=== PATIENT | female | born 1950 | race Caucasian/White ===

== ENCOUNTER 2016-04-03 16:28 | Emergency (ER) | payer OTHER ==
[2016-04-03 16:36] VITALS: PULSE 64; TEMP 97.4; BMI 35.7
[2016-04-03 18:00] LABS: BASOPHIL 0.6 % (0-2.0); MCHC 34.4 g/dl (32.0-36.0); MEAN CELL VOLUME 81.6 fl (80-96); MEAN PLT VOLUME 7.7 fl (7.5-11.1); NEUTROPHILS 71.8 % (42.8-82.8); PLATELET COUNT 268 K/MM3 (134-434); RDW 14.7 % (11.6-15.6); URINE APPEARANCE CLOUDY; URINE BILIRUBIN NEGATIVE (NEGATIVE); URINE BLOOD NEGATIVE (NEGATIVE); URINE COLOR AMBER; URINE GLUCOSE (UA) NEGATIVE (NEGATIVE); URINE KETONE NEGATIVE (NEGATIVE); URINE NITRITE NEGATIVE (NEGATIVE); URINE UROBILINOGEN 4.0 E.U/dl E.U./dl (0.2-1.0); WHITE BLOOD COUNT 8.4 K/mm3 (4.0-10.0)
[2016-04-03 18:01] LABS: URINE LEUK ESTERASE 3+ (NEGATIVE); URINE PROTEIN 1+ (NEGATIVE)
--- NOTE | 2016-04-03 18:27 | PDOC ---
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 Christine today. She reports her abdominal pain is diffuse, however, more prominent to her midsection. She also reports tenderness to the upper quadrants of her abdomen, bilaterally. The patient reports feeling feverish, lightheaded, and nauseous for the past couple of days. She reports mild back pain across the middle of her back. She denies experiencing these symptoms in the past. She reports taking tramadol this morning with minimal relief of pain. She reports a loss of appetite over the past few days. She reports her last bowel movement was yesterday morning after taking laxatives the night before. She denies chest pain, shortness of breath, headache and dizziness. She denies vomit, diarrhea and constipation. She denies dysuria, frequency, urgency and hematuria. Allergies: NKDA Past surgical history: appendectomy, Left sided Lithotripsy Social history: former tobacco use PCP - Dr. Christine ([phone]) Urologist: Dr. Santos ([phone]) <Amy Tabor - Last Filed: 04/03/16 21:33> <Alma Perez - Last Filed: 04/08/16 17:12> - General Chief Complaint: Pain Stated Complaint: had shingles/PCP SENT Past History <Amy Tabor - Last Filed: 04/03/16 21:33> - Past Medical History Anemia: Yes Asthma: No Cancer: No Cardiac Disorders: No CVA: No COPD: No CHF: No Dementia: No Diabetes: No GI Disorders: No Disorders: No HTN: Yes Hypercholesterolemia: Yes Kidney Stones: Yes Liver Disease: No Seizures: No Thyroid Disease: Yes - Surgical History Abdominal Surgery: No Appendectomy: Yes Cardiac Surgery: No Cholecystectomy: No Lung Surgery: No Neurologic Surgery: No Orthopedic Surgery: Yes (LEFT ARTHROSCOPY X2,RIGHT ARTHROSCOPY X1,RIGHT ANKLE SX ) - Psycho/Social/Smoking Cessation Hx Anxiety: No Suicidal Ideation: No Smoking History: Never smoked Have you smoked in the past 12 months: No If you are a former smoker, when did you quit?: 2001 Information on smoking cessation initiated: No Hx Alcohol Use: No Drug/Substance Use Hx: No Substance Use Type: None Hx Substance Use Treatment: No <Alma Perez - Last Filed: 04/08/16 17:12> - Past Medical History Allergies/Adverse Reactions: Allergies Allergy/AdvReac Type Severity Reaction Status Date / Time No Known Drug Allergies Allergy Verified 04/03/16 16:32 Home Medications: Ambulatory Orders Aspirin Coated [Ecotrin -] 81 mg PO DAILY 05/30/15 Ferrous Sulfate [Feosol] 325 mg PO DAILY 05/30/15 Levothyroxine [Synthroid -] 100 mcg PO DAILY 05/30/15 Metoprolol Succinate [Toprol XL -] 75 mg PO DAILY 05/30/15 Simvastatin 40 mg PO HS 05/30/15 Sulfamethoxazole/Trimethoprim [Bactrim Ds -] 1 tab PO BID #20 tablet 04/04/16 Review of Systems - Review of Systems Able to Perform ROS?: Yes Comments:: 04/03/16 18:30 CONSTITUTIONAL: (+) loss of appetite, subjective fever and chills, Absent: diaphoresis, generalized weakness, malaise, HEENT: Absent: rhinorrhea, nasal congestion, throat pain, throat swelling, difficulty swallowing, mouth swelling, ear pain, eye pain, visual Changes CARDIOVASCULAR: (+) lightheadedness, Absent: chest pain, syncope, palpitations, irregular heart rate, peripheral edema RESPIRATORY: Absent: cough, shortness of breath, dyspnea with exertion, orthopnea, wheezing, stridor, hemoptysis GASTROINTESTINAL: (+) abdominal pain, abdominal distension, nausea, Absent: vomiting, diarrhea, constipation, melena, hematochezia GENITOURINARY: Absent: dysuria, frequency, urgency, hesitancy, hematuria, flank pain, genital pain MUSCULOSKELETAL: Absent: myalgia, arthralgia, joint swelling SKIN: Absent: rash, itching, pallor HEMATOLOGIC/IMMUNOLOGIC: Absent: easy bleeding, easy bruising, lymphadenopathy, frequent infections ENDOCRINE: Absent: unexplained weight gain, unexplained weight loss, heat intolerance, cold intolerance NEUROLOGIC: Absent: headache, focal weakness or paresthesias, dizziness, unsteady gait, seizure, mental status changes, bladder or bowel incontinence PSYCHIATRIC: Absent: anxiety, depression, suicidal or homicidal ideation, hallucinations. <Amy Tabor - Last Filed: 04/03/16 21:33> *Physical Exam - Vital Signs Last Vital Signs Temp Pulse Resp BP Pulse Ox 97.4 F L 64 18 144/77 100 04/03/16 16:33 04/03/16 16:33 04/03/16 16:33 04/03/16 16:33 04/03/16 16:33 - Physical Exam Comments: 04/03/16 18:31 GENERAL: Well developed, well nourished. Awake and alert. No acute distress. HEENT: (+) Pterygium. Normocephalic, atraumatic. PERRLA, EOMI. No conjunctival pallor. Sclera are non-icteric. Moist mucous membranes. Oropharynx is clear. NECK: Supple. Full ROM. No JVD. Carotid pulses 2+ and symmetric, without bruits. No thyromegaly. No lymphadenopathy. CARDIOVASCULAR: Regular rate and rhythm. No murmurs, rubs, or gallops. Distal pulses are 2+ and symmetric. PULMONARY: No evidence of respiratory distress. Lungs clear to auscultation bilaterally. No wheezing, rales or rhonchi. ABDOMINAL: (+) Diffuse tenderness. mildly distended. Soft. No rebound or guarding. No organomegaly. Normoactive bowel sounds. MUSCULOSKELETAL Normal range of motion at all joints. No bony deformities or tenderness. No CVA tenderness. EXTREMITIES: No cyanosis. No clubbing. No edema. No calf tenderness. SKIN: (+) Lesions on left breast are dry. Warm and dry. Normal capillary refill. No jaundice. NEUROLOGICAL: Alert, awake, appropriate. Cranial nerves 2-12 intact. Normoreflexic in the upper and lower extremities. Normal speech. Toes are down-going bilaterally. Gait is normal without ataxia. PSYCHIATRIC: Cooperative. Good eye contact. Appropriate mood and affect. <Amy Tabor - Last Filed: 04/03/16 21:33> - Vital Signs Last Vital Signs Temp Pulse Resp BP Pulse Ox 97.4 F L 64 18 144/77 100 04/03/16 16:33 04/03/16 16:33 04/03/16 16:33 04/03/16 16:33 04/03/16 16:33 <Alma Perez - Last Filed: 04/08/16 17:12> Heart Score/ECG Review - [place] Comment: 04/03/16 21:33 EKG was read by Dr. Perez at 19:05 Impression: Sinus Bradycardia Vent.Rate: 59 bpm VT Interval: 176 ms QTc: 451 ms <Amy Tabor - Last Filed: 04/03/16 21:33> ED Treatment Course - LABORATORY CBC & Chemistry Diagram: 04/03/16 17:40 04/03/16 17:40 - ADDITIONAL ORDERS Additional order review: Laboratory Results 04/03/16 17:40 Urine Color Bharti Urine Appearance Cloudy Urine pH 5.0 Ur Specific Vermilion 1.027 Urine Protein 1+ H Urine Glucose (UA) Negative Urine Ketones Negative Urine Blood Negative Urine Nitrite Negative Urine Bilirubin Negative Urine Urobilinogen 4.0 e.u/dl H Ur Leukocyte Esterase 3+ H - RADIOLOGY Radiograph Interpretation: 04/03/16 19:32 Abdominal Xray was read by Dr. Velez at 18:50 Impression: Unremarkable exam. 04/03/16 21:[address] was read by Dr. Velez at 20:49 Impression: mild hepatomegaly with fatty infiltration and a tiny calcified density in the right hepatic lobe likely representing a granuloma. Gallstones, probably 3 in number with the largest measuring 2.5 cm and with diffuse thickening of the gallbladder wall. No pericholecystic inflammatory changes or free fluid are identified. Correlate clinically for further evaluation. 6mm nonobstructing left renal stone without evidence of hydrouretronephrosis or uteral stone, bilaterally. <Amy Tabor - Last Filed: 04/03/16 21:33> - LABORATORY CBC & Chemistry Diagram: 04/03/16 17:40 04/03/16 17:40 - ADDITIONAL ORDERS Additional order review: Laboratory Results 04/03/16 17:40 Urine Color Bharti Urine Appearance Cloudy Urine pH 5.0 Ur Specific [place] 1.027 Urine Protein 1+ H Urine Glucose (UA) Negative Urine Ketones Negative Urine Blood Negative Urine Nitrite Negative Urine Bilirubin Negative Urine Urobilinogen 4.0 e.u/dl H Ur Leukocyte Esterase 3+ H <Alma Perez - Last Filed: 04/08/16 17:12> Medical Decision Making - Medical Decision Making 04/03/16 21:11 Dr. Christine was paged via phone answering service requesting a callback for doctor to doctor consult. 04/03/16 21:30 Dr. Christine was paged a second time via phone answering service requesting a callback for doctor to doctor consult. <Amy Tabor - Last Filed: 04/03/16 21:33> - Medical Decision Making 04/04/16 00:58 This 65-year-old female was referred to the emergency department by her primary care physician, Dr. christine for abdominal pain She has complaint of some nausea and bloating feeling. Her discomfort tends to be upper abdominal pain. She has not had a fever, she's not had chills, she's not had diarrhea. She's not had vomiting. She has not had a cough Labs revealed mild elevated kidney function tests. The creatinine 1.3 and BUN of 21 CAT scan showed thickened gallbladder wall and 3. Gallbladder stones the largest measuring 2.5 cm IMP cholelithiasis /cholecystitis. However, the patient does not have a fever, she does not have a leukocytosis, she is not vomiting. She is able to eat food and she wants to leave the emergency department go home Patient will follow-up with Dr. Christine this week and see a surgeon to set up for a cholecystectomy 04/08/16 17:10 update I spoke w Dr Christine on SaturdayApr 06 and this pt had already had a cholecystectomy done this week after she was seen in the ER and was doing well <Alma Perez - Last Filed: 04/08/16 17:12> *DC/Admit/Observation/Transfer - Attestations Scribe Attestion: 04/03/16 18:32 Documentation prepared by Amy Tabor, acting as medical pathology teacher for Alma Perez MD <Amy Tabor - Last Filed: 04/03/16 21:33> <Alma Perez - Last Filed: 04/08/16 17:12> Diagnosis at time of Disposition: Cholelithiasis Qualifiers: Cholelithiasis location: gallbladder Cholecystitis presence: without cholecystitis Biliary obstruction: without biliary obstruction Qualified Code(s) : K80.20 - Calculus of gallbladder without cholecystitis without obstruction - Discharge Dispostion Disposition: HOME Condition at time of disposition: Stable - Prescriptions Prescriptions: Sulfamethoxazole/Trimethoprim [Bactrim Ds -] 1 tab PO BID #20 tablet - Referrals Referrals: Chris Christine MD [Primary Care Provider] - - Patient Instructions Printed Discharge Instructions: DI for Gallstones Additional Instructions: Please followup with your primary physician this week. If you have any worsening symptoms or for new concerning symptoms return to the emergency department.
[2016-04-03 18:30] LABS: ALBUMIN 3.7 g/dl (3.4-5.0); BILIRUBIN,TOTAL 0.8 mg/dL (0.2-1.0); CALCIUM 9.2 mg/dL (8.5-10.1); CREATININE 1.3 mg/dL (0.55-1.02)
[2016-04-03 19:28] LABS: GRANULAR CASTS 6 /lpf; URINE BACTERIA RARE /hpf (NONE SEEN); URINE HYALINE CAST 19 /lpf; URINE MUCUS FEW; URINE RBC 8 /hpf (0-3); URINE WBC 213 /hpf (3-5)
[2016-04-03 21:20] VITALS: BP 159/84
--- NOTE | 2016-04-04 13:26 | EKG ---
Test Reason : Blood Pressure : / mmHG Vent. Rate : 059 BPM Atrial Rate : 059 BPM P-R Int : 176 ms QRS Dur : 100 ms QT Int : 456 ms P-R-T Axes : 061 022 045 degrees QTc Int : 451 ms SINUS BRADYCARDIA OTHERWISE NORMAL ECG NO PREVIOUS ECGS AVAILABLE Confirmed by ALEXANDRA BROWN MD ([id number]) on 04/04/2016 1:26:11 PM Referred By: Confirmed By:ALEXANDRA BROWN MD
== END 2016-04-03 21:50 | disposition home or self-care (01) ==
LOC: JER 16:28
DX: K80.20 Calculus of gallbladder without cholecystitis without obstruction (principal); Z87.442 Personal history of urinary calculi; I10 Essential (primary) hypertension; Z87.891 Personal history of nicotine dependence
CPT/HCPCS: 36415; 74000-TC; 74176-TC; 80053; 81003; 81015; 82150; 83690; 85025; 87804; 93005; 93010; 99284-25

== ENCOUNTER 2021-01-23 04:24 | Day surgery (SDC) | payer OTHER ==
[2021-01-19 12:09] VITALS: BMI 34.9
[2021-01-23] MEDS ORDERED: ROPIVACAINE HCL 0.5% 30ML VIAL ONE (07:03)
[2021-01-23] MEDS ORDERED: MIDAZOLAM HCL 2 MG/2 ML SINGLE DOSE VIAL ONE ×2 (07:05)
[2021-01-23] MEDS ORDERED: ONDANSETRON 4 MG/2 ML VIAL ONE (07:35)
[2021-01-23] MEDS ORDERED: PROPOFOL 20 ML ONE ×3 (07:35)
[2021-01-23] MEDS ORDERED: KETOROLAC TROMETHAMINE 30 MG/1 ML VIAL ONE (07:35)
[2021-01-23] MEDS ORDERED: DEXAMETHASONE SOD PHOSPHATE 4 MG/1 ML VIAL ONE (07:35)
[2021-01-23] MEDS ORDERED: SCOPOLAMINE HYDROBROMIDE 1 PATCH PATCH.TD72 ONE (07:54)
[2021-01-23] MEDS ORDERED: SCOPOLAMINE HYDROBROMIDE 1 PATCH PATCH.TD72 TD ONE (07:58)
[2021-01-23] MEDS ORDERED: ceFAZolin 2 GRAM PREMIX BAG IVPB ONE (08:15)
[2021-01-23 08:38] LABS: EPI CELLS 5 /uL (0-25.1); HYALINE CASTS 0 /uL (0-3.1); URINE APPEARANCE CLEAR; URINE BACTERIA 0 /uL (0-1359); URINE BILIRUBIN NEGATIVE (NEGATIVE); URINE COLOR YELLOW; URINE GLUCOSE (UA) NEGATIVE (NEGATIVE); URINE KETONE NEGATIVE (NEGATIVE); URINE LEUK ESTERASE 1+ (NEGATIVE); URINE NITRITE NEGATIVE (NEGATIVE); URINE PROTEIN NEGATIVE (NEGATIVE); URINE RBC 12 /uL (0-23.9); URINE UROBILINOGEN 0.2 mg/dL (0.2-1.0); URINE WBC 46 /uL (0-25.8)
[2021-01-23] MEDS ORDERED: ONDANSETRON 4 MG/2 ML VIAL IVPUSH PRN (09:54)
[2021-01-23] MEDS ORDERED: oxyCODONE HCL 5 MG TABLET PO PRN ×2 (09:54)
[2021-01-23] MEDS ORDERED: LACTATED RINGERS SOLUTION 1,000 ML IV SCH (10:00)
[2021-01-23] MEDS ORDERED: hydrALAZINE HCL 20 MG/ML VIAL IVPUSH ONE ×3 (10:06→10:38)
[2021-01-23 13:11] VITALS: BP 142/73; PULSE 71; TEMP 96.9
== END 2021-01-23 12:50 | disposition home or self-care (01) ==
LOC: JASU-SURG 04:24
PROVIDERS: ATTEND Orthopaedic Surgery
PROC: 0RQJ4ZZ Repair Right Shoulder Joint, Percutaneous Endoscopic Approach (ICD-10-PCS; 2021-01-23)
PROC: 0PB94ZZ Excision of Right Clavicle, Percutaneous Endoscopic Approach (ICD-10-PCS; principal; 2021-01-23 07:30)
DX: M75.41 Impingement syndrome of right shoulder (principal); M19.011 Primary osteoarthritis, right shoulder; S43.431A Superior glenoid labrum lesion of right shoulder, initial encounter; X58.XXXA Exposure to other specified factors, initial encounter; Y93.9 Activity, unspecified; Y92.9 Unspecified place or not applicable; Y99.9 Unspecified external cause status; E11.9 Type 2 diabetes mellitus without complications; I10 Essential (primary) hypertension; Z79.84 Long term (current) use of oral hypoglycemic drugs
CPT/HCPCS: 81003; 82962; 94760

== ENCOUNTER 2021-09-12 15:44 | Observation (INO) | payer OTHER ==
[2021-09-12 16:23] VITALS: BMI 34.9
[2021-09-12] MEDS ORDERED: ACETAMINOPHEN 325 MG TABLET (FP) PO ONE (17:58)
[2021-09-12] MEDS ORDERED: METOCLOPRAMIDE HCL INJECTION 10 MG/2 ML VIAL IVPUSH ONE (17:58)
[2021-09-12 18:25] LABS: BASO % 0.1 % (0-2.0); EOS % 0.1 % (0-4.5); HEMATOCRIT 34.8 % (32.4-45.2); HEMOGLOBIN 11.6 GM/dL (10.7-15.3); LYMPH % 23.3 % (8-40); MCH 24.9 pg (25.7-33.7); MCHC 33.2 g/dl (32.0-36.0); MEAN PLT VOLUME 7.7 fl (7.5-11.1); MONO % 7.8 % (3.8-10.2); NEUT % 68.7 % (42.8-82.8); PLATELET COUNT 210 10^3/uL (134-434); RBC 4.64 M/mm3 (3.60-5.2); RDW 16.7 % (11.6-15.6); WHITE BLOOD COUNT 6.1 K/mm3 (4.0-10.0)
[2021-09-12 18:32] LABS: INR 1.03 (0.83-1.09); PROTHROMBIN TIME (PATIENT) 11.8 SEC (9.7-13.0)
[2021-09-12 18:35] LABS: ACTIVATED PTT 30.5 SECONDS (25.2-36.5)
[2021-09-12] MEDS ORDERED: ACETAMINOPHEN 325 MG TABLET (FP) ONE (18:45)
[2021-09-12] MEDS ORDERED: METOCLOPRAMIDE HCL INJECTION 10 MG/2 ML VIAL ONE (18:46)
[2021-09-12 18:50] LABS: CALCIUM 9.4 mg/dL (8.5-10.1)
[2021-09-12 18:51] LABS: ALBUMIN 3.8 g/dl (3.4-5.0); BLOOD UREA NITROGEN 14.1 mg/dL (7-18); MAGNESIUM 2.3 mg/dL (1.8-2.4)
[2021-09-12 18:54] LABS: BILIRUBIN,TOTAL 0.7 mg/dL (0.2-1); CREATININE 0.9 mg/dL (0.55-1.3); PHOSPHOROUS 2.9 mg/dL (2.5-4.9); TOT PROT 6.7 g/dl (6.4-8.2)
[2021-09-12 19:27] LABS: EPI CELLS 18 /uL (0-25.1); HYALINE CASTS 1 /uL (0-3.1); PH,URINE 5.5 (5.0-8.0); URINE APPEARANCE CLEAR; URINE BACTERIA 16 /uL (0-1359); URINE BILIRUBIN NEGATIVE (NEGATIVE); URINE COLOR YELLOW; URINE GLUCOSE (UA) NEGATIVE (NEGATIVE); URINE KETONE NEGATIVE (NEGATIVE); URINE LEUK ESTERASE 2+ (NEGATIVE); URINE NITRITE NEGATIVE (NEGATIVE); URINE PROTEIN NEGATIVE (NEGATIVE); URINE RBC 4 /uL (0-23.9); URINE UROBILINOGEN 0.2 mg/dL (0.2-1.0); URINE WBC 114 /uL (0-25.8)
[2021-09-13] MEDS ORDERED: CARVEDILOL 12.5 MG TABLET (FP) PO ONE (00:37)
[2021-09-13 06:03] VITALS: TEMP 98.2
[2021-09-13] MEDS: INSULIN SLIDING SCALE (NOVOLOG) 1 VIAL SQ SCH ×2 (07:40→12:45)
[2021-09-13 08:22] LABS: CALCIUM 8.4 mg/dL (8.5-10.1)
[2021-09-13 08:23] LABS: ALBUMIN 3.4 g/dl (3.4-5.0)
[2021-09-13 08:26] LABS: BASO % 0.1 % (0-2.0); BILIRUBIN,TOTAL 0.7 mg/dL (0.2-1); CREATININE 1.1 mg/dL (0.55-1.3); HEMOGLOBIN 11.3 GM/dL (10.7-15.3); LYMPH % 25.2 % (8-40); MCH 25.1 pg (25.7-33.7); MCHC 33.3 g/dl (32.0-36.0); MEAN CELL VOLUME 75.5 fl (80-96); MEAN PLT VOLUME 7.6 fl (7.5-11.1); MONO % 8.5 % (3.8-10.2); NEUT % 66.2 % (42.8-82.8); PLATELET COUNT 192 10^3/uL (134-434); RDW 16.7 % (11.6-15.6); WHITE BLOOD COUNT 5.5 K/mm3 (4.0-10.0)
[2021-09-13 08:28] LABS: BLOOD UREA NITROGEN 17.3 mg/dL (7-18)
[2021-09-13 08:40] LABS: PHOSPHOROUS 3.2 mg/dL (2.5-4.9)
[2021-09-13] MEDS ORDERED: ENOXAPARIN NA (PORCINE) 40 MG/0.4 ML DISP.SYRIN SQ ONE (09:48)
[2021-09-13] MEDS ORDERED: LEVOTHYROXINE NA 125 MCG TABLET (FP) PO SCH (10:00)
[2021-09-13] MEDS ORDERED: ENOXAPARIN NA (PORCINE) 40 MG/0.4 ML DISP.SYRIN SQ SCH (10:00)
[2021-09-13] MEDS ORDERED: ACETAMINOPHEN 325 MG TABLET (FP) PO PRN (13:16)
[2021-09-13] MEDS ORDERED: ACETAMINOPHEN 325 MG TABLET (FP) ONE (14:05)
[2021-09-13 15:05] VITALS: BP 165/68; PULSE 70
[2021-09-13] MEDS ORDERED: EZETIMIBE 10 MG TABLET (FP) PO SCH (22:00)
== END 2021-09-13 15:00 | disposition home or self-care (01) ==
LOC: JER 15:44 → UNDOADMOB 19:24 → INTOOBSV 19:24 → JERBED 19:24
PROVIDERS: ADMIT Hospitalist; ATTEND Internal Medicine
PROC: 3E023GC Introduction of Other Therapeutic Substance into Muscle, Percutaneous Approach (ICD-10-PCS; principal; 2021-09-13)
PROC: 3E013VG Introduction of Insulin into Subcutaneous Tissue, Percutaneous Approach (ICD-10-PCS; 2021-09-13)
PROC: 3E033GC Introduction of Other Therapeutic Substance into Peripheral Vein, Percutaneous Approach (ICD-10-PCS; 2021-09-13)
DX: S09.90XA Unspecified injury of head, initial encounter (principal); W18.39XA Other fall on same level, initial encounter; Y93.89 Activity, other specified; Y92.008 Other place in unspecified non-institutional (private) residence as the place of occurrence of the external cause; E11.22 Type 2 diabetes mellitus with diabetic chronic kidney disease; I13.10 Hypertensive heart and chronic kidney disease without heart failure, with stage 1 through stage 4 chronic kidney disease, or unspecified chronic kidney disease; R42 Dizziness and giddiness; E66.9 Obesity, unspecified; Z68.34 Body mass index [BMI] 34.0-34.9, adult; I25.10 Atherosclerotic heart disease of native coronary artery without angina pectoris; Z95.1 Presence of aortocoronary bypass graft; I69.898 Other sequelae of other cerebrovascular disease; E78.5 Hyperlipidemia, unspecified; E03.9 Hypothyroidism, unspecified; N18.30 Chronic kidney disease, stage 3 unspecified; Z88.6 Allergy status to analgesic agent; N20.0 Calculus of kidney; Z87.891 Personal history of nicotine dependence; Z29.8 Encounter for other specified prophylactic measures
CPT/HCPCS: 36415; 70450-TC; 71045-TC-FY; 72125-TC; 80053; 80061; 81003; 82962; 83735; 84100; 84443; 84484; 85025; 85610; 85730; 86850; 86900; 86901; 87086; 93005; 93010; 93306-TC; 93880-TC; 96372; 96374; 99285-25; C9803-CS; G0378; U0003; U0005

== ENCOUNTER 2024-05-07 06:39 | Day surgery (SDC) | payer OTHER, MEDICARE ==
[2024-05-05 10:41] VITALS: BMI 26.0
[2024-05-07 10:40] VITALS: BP 160/66; PULSE 75; RESP 18; TEMP 97.8
== END 2024-05-07 13:30 | disposition home or self-care (01) ==
LOC: JASU-SURG 06:39
PROVIDERS: ATTEND Urology
DX: Z53.8 Procedure and treatment not carried out for other reasons (principal)
CPT/HCPCS: 82962

== ENCOUNTER 2024-06-04 06:24 | Day surgery (SDC) | payer OTHER, MEDICARE ==
[2024-06-01 14:11] VITALS: BMI 26.0
[2024-06-04] MEDS ORDERED: ONDANSETRON 4 MG/2 ML VIAL ONE (07:25)
[2024-06-04] MEDS ORDERED: MIDAZOLAM HCL 2 MG/2 ML SINGLE DOSE VIAL ONE (07:25)
[2024-06-04] MEDS ORDERED: ceFAZolin SODIUM 1 GM VIAL ONE (07:46)
[2024-06-04] MEDS: ceFAZolin SODIUM 1 GM VIAL IVPB ONE (07:49)
[2024-06-04] MEDS ORDERED: ELECTROLYTE-148 SOLN 1,000 ML IV SCH (08:00)
[2024-06-04 08:24] VITALS: BP 169/72; PULSE 72; RESP 14; TEMP 97.1
== END 2024-06-04 10:08 | disposition home or self-care (01) ==
LOC: JASU-SURG 06:24
PROVIDERS: ATTEND Urology
PROC: 0TF3XZZ Fragmentation in Right Kidney Pelvis, External Approach (ICD-10-PCS; principal; 2024-06-04 07:30)
DX: N20.0 Calculus of kidney (principal)
CPT/HCPCS: 82962